=== PATIENT | female | born 1995 | race African-American/Black ===

== ENCOUNTER 2019-05-05 20:09 | Emergency (ER) | payer MEDICAID, OTHER ==
[2019-05-05] MEDS ORDERED: Acetaminophen 500 MG TAB ONE (20:49)
[2019-05-05 20:56] LABS: #Basophils 0.1 thou/uL (0.0-0.2); #Eosinphils 0.1 thou/uL (0.0-0.7); #Lymphocytes 2.2 thou/uL (1.20-3.40); #Monocytes 0.5 thou/uL (0.11-0.59); #Neutrophils 3.5 thou/uL (1.40-6.50); %Basophils 1.1 % (0.0-1.0); %Eosinophils 1.8 % (0.0-10.0); %Lymphocytes 34.3 % (21.0-51.0); %Monocytes 7.7 % (0.0-10.0); %Neutrophils 55.1 % (42.0-75.0); Hemoglobin 10.3 g/dL (12.0-16.0); Mean Corpuscular HGB CONC 33.2 g/dL (32.0-36.0); Mean Corpuscular Hemoglobin 29.3 pg (27.0-31.0); Mean Corpuscular Volume 88.2 fL (78.0-98.0); Mean Platelet Volume 7.4 fL (7.4-10.4); Platelet Count 246 thou/uL (130-400); RBC Distribution Width 12.7 % (11.5-14.5); Red Blood Cell (RBC) Count 3.51 mill/uL (4.20-5.40); White Blood Cell (WBC) Count 6.3 thou/uL (4.8-10.8)
[2019-05-05 20:57] LABS: Bilirubin Negative (Negative); Blood, Urine Negative (Negative); Clarity Clear (Clear); Glucose, Urine (Dipstick) Normal (Negative); Leukocyte Negative Leu/uL (Negative); Nitrite Negative (Negative); Protein, Urine (Dipstick) Negative (Neg-Trace); Urobilinogen Normal mg/dL (Less than 2)
[2019-05-05 21:21] LABS: ALT (SGPT) Less than 7 U/L (8-55); AST (SGOT) 13 U/L (5-34); Albumin 3.1 g/dL (3.5-5.0); Alkaline Phosphatase 59 U/L (40-110); Anion Gap 7 mmol/L (10-20); BUN (Urea Nitrogen) 5 mg/dL (7.0-18.7); Bilirubin, Total 0.2 mg/dL (0.2-1.2); Calc. Creatinine Clearance 0 mL/min (70-130); Carbon Dioxide 23 mmol/L (22-29); Chloride 107 mmol/L (98-107); Estimated GFR-MDRD Greater than 90; Globulin 2.8 g/dL (2.4-3.5); Glucose 69 mg/dL (70-105); Potassium 3.4 mmol/L (3.5-5.1); Protein, Total 5.9 g/dL (6.0-8.3); Sodium 134 mmol/L (136-145)
--- NOTE | 2019-05-05 23:04 | ULT ---
EXAM: US OB Multi Gestation PROVIDED CLINICAL HISTORY: Pain COMPARISON: None FINDINGS: Twin intrauterine gestations are documented, 18 weeks 5 days by ultrasound. heart rate of 150 b pm documented for twin A. heart rate of 160 bpm documented for twin B. A single placenta is demonstrated, posteriorly located and without evidence for previa or abruption. No intertwin membrane the gestations is evident. anatomic survey was not performed. Amniotic fluid appears qualitatively normal. Cervical length appears adequate. Estimated weight for twin B a i s 237 g. Estimated weight for twin B is 247 g. IMPRESSION: Twin live intrauterine gestations, 18 weeks 5 days by ultrasound. Sonographic findings are compatible with a monochorionic, monoamniotic gestation. Nonemergent OB consultation is recommended.
== END 2019-05-05 23:20 | disposition home or self-care (01) ==
LOC: ERS 20:09
DX: O99.89 Other specified diseases and conditions complicating pregnancy, childbirth and the puerperium (principal); R10.30 Lower abdominal pain, unspecified; R10.815 Periumbilic abdominal tenderness; Z3A.16 16 weeks gestation of pregnancy
CPT/HCPCS: 36415; 76810; 80053; 81003; 85025

== ENCOUNTER 2019-05-16 21:04 | Emergency (ER) | payer OTHER ==
[2019-05-16 22:13] LABS: #Basophils 0.1 thou/uL (0.0-0.2); #Eosinphils 0.1 thou/uL (0.0-0.7); #Lymphocytes 2.1 thou/uL (1.20-3.40); #Monocytes 0.5 thou/uL (0.11-0.59); #Neutrophils 5.6 thou/uL (1.40-6.50); %Eosinophils 0.8 % (0.0-10.0); %Lymphocytes 25.2 % (21.0-51.0); %Monocytes 5.8 % (0.0-10.0); %Neutrophils 67.2 % (42.0-75.0); Hemoglobin 9.9 g/dL (12.0-16.0); Mean Corpuscular HGB CONC 33.8 g/dL (32.0-36.0); Mean Corpuscular Hemoglobin 29.4 pg (27.0-31.0); Mean Platelet Volume 7.5 fL (7.4-10.4); Platelet Count 270 thou/uL (130-400); RBC Distribution Width 12.6 % (11.5-14.5); Red Blood Cell (RBC) Count 3.36 mill/uL (4.20-5.40); White Blood Cell (WBC) Count 8.4 thou/uL (4.8-10.8)
[2019-05-16 22:32] LABS: ALT (SGPT) Less than 7 U/L (8-55); AST (SGOT) 14 U/L (5-34); Albumin 3.3 g/dL (3.5-5.0); Alkaline Phosphatase 59 U/L (40-110); Anion Gap 12 mmol/L (10-20); BUN (Urea Nitrogen) 7 mg/dL (7.0-18.7); Bilirubin, Total 0.2 mg/dL (0.2-1.2); Calc. Creatinine Clearance 0 mL/min (70-130); Calcium 8.5 mg/dL (7.8-10.44); Carbon Dioxide 21 mmol/L (22-29); Chloride 104 mmol/L (98-107); Estimated GFR-MDRD Greater than 90; Globulin 2.7 g/dL (2.4-3.5); Glucose 119 mg/dL (70-105); Lipase 25 U/L (8-78); Sodium 134 mmol/L (136-145)
[2019-05-16 22:36] LABS: Potassium 2.9 mmol/L (3.5-5.1)
[2019-05-16 22:37] LABS: Bilirubin Negative (Negative); Blood, Urine Negative (Negative); Clarity Clear (Clear); Glucose, Urine (Dipstick) Normal (Negative); Leukocyte Negative Leu/uL (Negative); Mucous/LPF 1+ LPF (<2+); Nitrite Negative (Negative); Protein, Urine (Dipstick) 50 mg/dL (Neg-Trace); RBC/HPF None Seen HPF (0-3); Squamous Epithelial 0-3 HPF (0-3); WBC/HPF 0-3 HPF (0-3)
[2019-05-16 22:48] LABS: Bacteria/HPF Rare-Few HPF (None Seen)
[2019-05-16] MEDS ORDERED: Potassium Chloride 40 MEQ in Sodium Chloride 0.9% 250 ML 250 ML IVPB SCH (23:00)
[2019-05-16] MEDS ORDERED: Potassium Chloride 20 MEQ TAB ONE (23:23)
[2019-05-16] MEDS ORDERED: Ondansetron PF 4 MG/2 ML Vial ONE (23:23)
== END 2019-05-17 00:23 | disposition home or self-care (01) ==
LOC: ERS 21:04
DX: O99.282 Endocrine, nutritional and metabolic diseases complicating pregnancy, second trimester (principal); E86.0 Dehydration; E87.6 Hypokalemia; Z3A.20 20 weeks gestation of pregnancy
CPT/HCPCS: 36415; 80053; 81003; 81015; 83690; 85025; 93005; 96361; 96374; J2405; J3480; J7050

== ENCOUNTER 2019-09-04 05:38 | Inpatient (IN) | payer OTHER ==
[2019-09-04] MEDS ORDERED: Bicitra 30 ML UDCUP PO SCH (06:27)
[2019-09-04] MEDS ORDERED: Ondansetron PF 4 MG/2 ML Vial IVP PRN ×4 (06:27→11:58)
[2019-09-04] MEDS ORDERED: CEFAZOLIN 2 GM in Premix Bag 1 BAG IVPB SCH (06:27)
[2019-09-04] MEDS ORDERED: hydrALAZINE 20 MG/ML VIAL SLOW IVP PRN ×2 (06:27→10:33)
[2019-09-04] MEDS ORDERED: Promethazine HCl 25 MG/ML VIAL IM PRN ×4 (06:27→11:58)
[2019-09-04 06:39] VITALS: BMI 23.8
[2019-09-04 06:40] LABS: Hemoglobin 10.7 g/dL (12.0-16.0); Mean Corpuscular HGB CONC 32.2 g/dL (32.0-36.0); Mean Corpuscular Hemoglobin 27.8 pg (27.0-31.0); Mean Corpuscular Volume 86.4 fL (78.0-98.0); Mean Platelet Volume 9.5 fL (7.4-10.4); Platelet Count 215 thou/uL (130-400); RBC Distribution Width 17.3 % (11.5-14.5); Red Blood Cell (RBC) Count 3.85 mill/uL (4.20-5.40); White Blood Cell (WBC) Count 7.6 thou/uL (4.8-10.8)
[2019-09-04] MEDS ORDERED: MORPHINE 5 MG/10 ML PF VIAL ONE (06:46)
[2019-09-04] MEDS ORDERED: Oxytocin 10 UNITS/ML VIAL ONE ×2 (06:47→08:20)
[2019-09-04] MEDS ORDERED: Ondansetron PF 4 MG/2 ML Vial ONE (06:47)
[2019-09-04] MEDS ORDERED: EPHEDRINE 25 MG/5 ML SYRINGE ONE (06:49)
[2019-09-04] MEDS ORDERED: PHENYLEPHRINE-NS 100 MCG/ML 10 ML SYRINGE ONE (06:49)
[2019-09-04] MEDS ORDERED: Midazolam HCl 2 mg/2 ml Vial ONE (07:06)
[2019-09-04] MEDS ORDERED: Ketamine 50 MG/ML (10ML VIAL) ONE (07:06)
[2019-09-04] MEDS: Lactated Ringer's 1,000 ML IV SCH ×2 (07:15→12:00)
[2019-09-04 07:19] LABS: Syphilis Antibody Nonreactive (Nonreactive); Syphilis Antibody Index 0.02 S/CO (<1.00 Non-Reactive)
[2019-09-04 07:20] LABS: Hep B Surf Ag Non-Reactive S/CO (NonReactive)
[2019-09-04] MEDS ORDERED: Ketorolac Tromethamine 30 MG/ML VIAL IVP PRN ×2 (07:31)
[2019-09-04] MEDS ORDERED: Meperidine HCl/PF 25 MG/ML VIAL SLOW IVP PRN (07:31)
[2019-09-04] MEDS ORDERED: L&D-Morphine 4 MG/ML VIAL SLOW IVP PRN (07:31)
[2019-09-04] MEDS ORDERED: Promethazine HCl 25 MG SUPP PR PRN ×3 (07:31→11:58)
[2019-09-04] MEDS ORDERED: Naloxone HCl 0.4 mg/ml Vial IV PRN ×3 (07:31→11:58)
[2019-09-04] MEDS ORDERED: HYDROmorphone 2 MG/ML VIAL SLOW IVP PRN (07:31)
[2019-09-04] MEDS ORDERED: diphenhydrAMINE 50 MG/ML VIAL IVP PRN ×2 (07:31)
[2019-09-04] MEDS ORDERED: Ondansetron HCl/PF 4 MG/2 ML Vial IVP PRN (07:31)
[2019-09-04] MEDS ORDERED: Naloxone HCl 0.4 mg/ml Vial IVP PRN ×6 (07:31→11:58)
[2019-09-04] MEDS ORDERED: Communication Order-Pharmacy FS SCH ×4 (07:45→12:00)
[2019-09-04] MEDS ORDERED: Ketorolac Tromethamine 30 MG/ML VIAL IVP SCH (07:45)
--- NOTE | 2019-09-04 09:29 | OP ---
DATE OF PROCEDURE: 09/04/2019 PREOPERATIVE DIAGNOSES: 1. A 24-year-old, G3, P1-0-1-2, at 36 weeks. 2. Monochorionic diamniotic at 36 weeks. 3. Status post steroid benefit. 4. MFM recommendation for delivery between 36 and 37 weeks. POSTOPERATIVE DIAGNOSES: 1. A 24-year-old, G3, P1-0-1-2, at 36 weeks. 2. Monochorionic diamniotic at 36 weeks. 3. Status post steroid benefit. 4. MFM recommendation for delivery between 36 and 37 weeks. PROCEDURE PERFORMED: Repeat low-transverse section. [employer]: Feli Dang PA-C COMPLICATIONS: None. ANESTHESIA: Spinal per Dr. Moore. ESTIMATED BLOOD LOSS: Approximately 500 mL. QBL: Pending. OPERATIVE FINDINGS: 1. Low-transverse hysterotomy without extension. 2. Vigorous female infant delivered from vertex presentation. Apgars and weight pending at the time of dictation. 3. Female infant delivered from vertex presentation. Apgars and weight pending at the time of dictation. 4. Fundus firm after delivery of the placenta. 5. Normal-appearing uterus, tubes, and ovaries bilaterally. DESCRIPTION OF PROCEDURE: The patient was taken back to the OR with IV fluids running. When she was in the OR, spinal anesthesia was obtained and the patient was placed in dorsal supine position with a left lateral tilt. Ancef 2 g were administered through the IV. The patient had a Vázquez catheter placed using sterile technique. SCDs were placed to the lower extremities, and she was prepped and draped in normal fashion for section. The surgeons were gowned and gloved, and the anesthesia was tested and found to be adequate. A Pfannenstiel skin incision was made with a scalpel. A keloid reactive scar was excised from the center of the incision. The subcutaneous layer was dissected down with the scalpel until the fascia was reached. Once the fascia was reached, it was incised in the midline and extended superolaterally using curved Ornelas scissors. Marin clamps were then placed at the superior border of the fascia, which was sharply and bluntly dissected off the rectus abdominis muscles. This was repeated from the inferior edge of the fascia and dissection was carried down towards the level of the pubic symphysis. The rectus muscles were tented off the abdomen and entered with Metzenbaum scissors. The peritoneum was then bluntly entered and stretched laterally. An Mk O retractor was placed into the peritoneal cavity for retraction, visualization, and protection of the wound. Some filmy adhesions of the serosa over the anterior aspect of the uterus were taken down with Metzenbaum scissors. A bladder flap was created with Metzenbaum scissors and the bladder was dissected away from the planned hysterotomy site. A low-transverse hysterotomy was made with a scalpel. The uterus was bluntly entered and stretched using the Helm maneuver. Allis clamp was used to rupture the membranes of baby A with clear fluid noted. Baby A was then delivered from vertex presentation through the incision. The nose and mouth were suctioned. The cord was clamped and cut, and the was handed off to the Nursery Team. Next, the chorion of baby B was ruptured. Clear fluid was noted. Baby B was delivered vertex through the incision. The nose and mouth were suctioned and the baby was handed off to special care nurses in attendance. After both babies were delivered, the cord bloods of baby A and B were collected. The placenta was delivered. The uterus was exteriorized, massaged to firm, and cleared of clot and debris. The uterus was returned to the abdominal cavity. The hysterotomy was inspected and no extension was noted. The hysterotomy was closed with a running lock suture of Monocryl suture. A [id number] stitch was placed in each corner for additional hemostasis after the closure was completed. The hysterotomy and paracolic gutters were then copiously irrigated and suctioned dry. No areas of bleeding were noted. After the hysterotomy was closed and hemostasis was noted, the Mk O retractor was removed from the abdominal cavity. The rectus muscles and fascia were inspected and any small areas of bleeding were controlled with Bovie cauterization. The rectus fascia was closed with a continuous running suture from corner to corner using PDS suture. After the rectus muscles were closed, the subcutaneous layer was inspected and any small areas of bleeding were controlled with Bovie cauterization. The subcutaneous layer was irrigated and dried. It was reapproximated with a series of interrupted plain gut suture. The skin was closed with 4-0 Monocryl and dressed with Dermabond dressing. The patient tolerated the procedure well. There were no complications and the final count was correct. Job ID: [id number]
[2019-09-04] MEDS ORDERED: Meperidine HCl/PF 25 MG/ML VIAL ONE (10:06)
[2019-09-04] MEDS ORDERED: Bisacodyl 10 MG SUPP PR PRN (10:33)
[2019-09-04] MEDS ORDERED: Lanolin Ointment 7 GM TUBE TOP PRN (10:33)
[2019-09-04] MEDS ORDERED: diphenhydrAMINE 25 MG CAP PO PRN (10:33)
[2019-09-04] MEDS: Ketorolac Tromethamine 30 MG/ML VIAL IVP PRN ×2 (12:18→18:27)
[2019-09-04] MEDS: diphenhydrAMINE 50 MG/ML VIAL IVP PRN ×2 (12:19→18:27)
[2019-09-04] MEDS: Ibuprofen 800 MG TAB PO SCH ×2 (13:20→23:38)
[2019-09-04] MEDS: Ferrous Sulfate 325 MG TAB PO SCH (13:21)
[2019-09-04] MEDS ORDERED: HYDROcodone/Acetaminophen 5/325 mg Tablet PO PRN (19:45)
[2019-09-04] MEDS ORDERED: Zolpidem Tartrate 5 MG TAB PO PRN (19:45)
[2019-09-04] MEDS: Simethicone Chewable 80 MG TAB PO PRN (21:24)
[2019-09-04] MEDS: Docusate Calcium (SURFAK) 240 MG CAP PO SCH (21:24)
[2019-09-04] MEDS: HYDROcodone/Acetaminophen 5/325 mg Tablet PO PRN (21:28)
[2019-09-05] MEDS: Simethicone Chewable 80 MG TAB PO PRN ×2 (03:21→21:10)
[2019-09-05] MEDS: HYDROcodone/Acetaminophen 5/325 mg Tablet PO PRN (03:21)
[2019-09-05] MEDS: Ibuprofen 800 MG TAB PO SCH ×3 (05:01→21:09)
[2019-09-05 05:35] LABS: Hemoglobin 10.6 g/dL (12.0-16.0); Mean Corpuscular HGB CONC 31.5 g/dL (32.0-36.0); Mean Corpuscular Hemoglobin 27.5 pg (27.0-31.0); Mean Corpuscular Volume 87.3 fL (78.0-98.0); Mean Platelet Volume 9.8 fL (7.4-10.4); Platelet Count 202 thou/uL (130-400); RBC Distribution Width 16.9 % (11.5-14.5); Red Blood Cell (RBC) Count 3.84 mill/uL (4.20-5.40); White Blood Cell (WBC) Count 12.1 thou/uL (4.8-10.8)
[2019-09-05] MEDS: Ferrous Sulfate 325 MG TAB PO SCH ×2 (06:59→13:38)
[2019-09-05] MEDS: Prenatal Vitamin 1 TAB PO SCH (08:42)
[2019-09-05] MEDS: Docusate Calcium (SURFAK) 240 MG CAP PO SCH ×2 (08:42→21:09)
[2019-09-05] MEDS ORDERED: Adacel (T-DAP) 0.5 ML SYRINGE IM ONE (09:00)
--- NOTE | 2019-09-05 09:11 | PDOC.PP ---
Post Progress Note Post Day #: 1 Subjective: Patient is doing well. She can feel the gas moving around her stomach. PO intake tolerated: yes Flatus: no Ambulation: yes Vital Signs (12 hours) Temp Pulse Resp BP Pulse Ox 09/05/19 07:17 98.6 F 68 16 138/89 100 09/05/19 03:20 98.2 F 65 16 108/58 L 09/04/19 23:00 98.1 F 61 16 119/68 Weight Weight 139 lb - Physical Examination General: NAD Respiratory: non-labored breathing Abdominal: + bowel sounds (hypoactive. Bowel sounds in LUQ only.), appropriately TTP Fundus firm & at: umb -2 Extremities: negative homans (B) Skin: CS incision dry & intact Neurological: no gross focal deficits Psychiatric: A&Ox3, normal affect Result Diagrams: 09/05/19 05:08 Additional Labs: Post Labs Blood Type O POSITIVE 09/04/19 07:02 Hep Bs Antigen Non-Reactive S/CO (NonReactive) 09/04/19 06:30 (1) delivery delivered Code(s): O82 - ENCOUNTER FOR DELIVERY WITHOUT INDICATION Status: Acute (2) Twin gestation in third trimester Code(s): O30.003 - TWIN PREG, UNSP NUM PLCNTA & AMNIO SACS, THIRD TRIMESTER Status: Acute - Assessment/Plan A: PO day 1 s/p RCS fro twin gestation. Hypoactive bowel sounds P: Walking in [place] three times today. RN to listen to bowel sounds this afternoon, pt has not had flatus Evaluated for DC home Sun. or Sunday.
[2019-09-06] MEDS: HYDROcodone/Acetaminophen 5/325 mg Tablet PO PRN (03:40)
[2019-09-06] MEDS: Simethicone Chewable 80 MG TAB PO PRN (03:42)
[2019-09-06] MEDS: Ibuprofen 800 MG TAB PO SCH ×3 (05:31→21:15)
--- NOTE | 2019-09-06 05:46 | PDOC.PP ---
Post Progress Note Post Day #: 2 Subjective: Doing well. PO intake tolerated: yes Flatus: yes Ambulation: yes Vital Signs (12 hours) Temp Pulse Resp BP Pulse Ox 09/06/19 01:56 98.9 F 76 14 124/72 99 09/05/19 21:01 98.7 F 68 14 125/62 99 Weight Weight 139 lb - Physical Examination General: NAD Cardiovascular: no m/r/g Respiratory: clear to auscultation bilaterally Abdominal: + bowel sounds, lochia, no distention, appropriately TTP Extremities: negative homans (B) Skin: CS incision dry & intact (Dermabond) Neurological: no gross focal deficits Psychiatric: A&Ox3, normal affect Result Diagrams: 09/05/19 05:08 Additional Labs: Post Labs Blood Type O POSITIVE 09/04/19 07:02 Hep Bs Antigen Non-Reactive S/CO (NonReactive) 09/04/19 06:30 (1) delivery delivered Code(s): O82 - ENCOUNTER FOR DELIVERY WITHOUT INDICATION Status: Acute (2) Twin gestation in third trimester Code(s): O30.003 - TWIN PREG, UNSP NUM PLCNTA & AMNIO SACS, THIRD TRIMESTER Status: Acute - Assessment/Plan POD 2 from twins and has twins at home 15 mos old. Doing well, asked to go home but babies still pending bili tests...likely home tomorrow.
[2019-09-06] MEDS: Ferrous Sulfate 325 MG TAB PO SCH ×2 (07:43→13:28)
[2019-09-06] MEDS: Docusate Calcium (SURFAK) 240 MG CAP PO SCH ×2 (08:04→21:15)
[2019-09-06] MEDS: Prenatal Vitamin 1 TAB PO SCH (08:04)
[2019-09-06 20:18] VITALS: TEMP 98.7
--- NOTE | 2019-09-07 06:16 | PDOC.PP ---
Post Progress Note Post Day #: POD3 Subjective: Resting comfortably. Tolerating diet. PO intake tolerated: yes Flatus: yes Ambulation: yes Vital Signs (12 hours) Temp Pulse Resp BP Pulse Ox 09/06/19 20:00 98.7 F 82 20 125/61 96 Weight Weight 63.049 kg - Physical Examination General: NAD Respiratory: non-labored breathing Abdominal: no distention Skin: CS incision dry & intact Neurological: no gross focal deficits Result Diagrams: 09/05/19 05:08 Additional Labs: Post Labs Blood Type O POSITIVE 09/04/19 07:02 Hep Bs Antigen Non-Reactive S/CO (NonReactive) 09/04/19 06:30 - Assessment/Plan Doing well. DC home. Precautions. RTC [address] Olsen.
[2019-09-07] MEDS: Ibuprofen 800 MG TAB PO SCH ×2 (06:34→08:33)
[2019-09-07] MEDS: Ferrous Sulfate 325 MG TAB PO SCH (07:30)
[2019-09-07 07:52] VITALS: BP 123/75
[2019-09-07] MEDS: Prenatal Vitamin 1 TAB PO SCH (08:31)
[2019-09-07] MEDS: Docusate Calcium (SURFAK) 240 MG CAP PO SCH (08:31)
== END 2019-09-07 12:50 | disposition home or self-care (01) | DRG 788 ==
LOC: L&D 05:38 → 3SW 11:06
PROVIDERS: ADMIT Obstetrics & Gynecology; ATTEND Obstetrics & Gynecology
PROC: 10D00Z1 Extraction of Products of Conception, Low, Open Approach (ICD-10-PCS; principal; 2019-09-04)
DX: O30.033 Twin pregnancy, monochorionic/diamniotic, third trimester (principal); O34.211 Maternal care for low transverse scar from previous cesarean delivery; Z37.2 Twins, both liveborn; Z3A.36 36 weeks gestation of pregnancy
CPT/HCPCS: 36415; 51702; 85027; 86780; 86850; 86900; 86901; 87340; 88307; J0690; J1200; J1885; J2175; J2250; J2274; J2405; J2590

== ENCOUNTER 2020-08-25 11:01 | Emergency (ER) | payer OTHER ==
[2020-08-25] MEDS ORDERED: Ondansetron ODT 4 MG TAB ONE (11:48)
[2020-08-25 12:14] LABS: Bilirubin Negative (Negative); Blood, Urine Negative (Negative); Clarity Clear (Clear); Glucose, Urine (Dipstick) Normal (Negative); Ketone, Urine Negative (Negative); Leukocyte Negative Leu/uL (Negative); Nitrite Negative (Negative); Protein, Urine (Dipstick) Negative (Neg-Trace); Specific Gravity, Urine 1.024 (1.002-1.036); Urobilinogen Normal mg/dL (Less than 2); pH, Urine 5.5 (5.0-9.0)
[2020-08-25 12:15] LABS: Pregnancy Test - Urine (BHCG) Negative (Negative); Pregu Control Background? CLEAR/WHITE (CLR/WHITE); Pregu Control Bar Appear? YES (CONTROL BAR); Specific Gravity 1.024 (1.002-1.036)
== END 2020-08-25 14:49 | disposition home or self-care (01) ==
LOC: ERS 11:01
DX: R11.2 Nausea with vomiting, unspecified (principal); R05 Cough; F17.210 Nicotine dependence, cigarettes, uncomplicated
CPT/HCPCS: 81003; 81025; 99284; Q0162

== ENCOUNTER 2020-11-01 17:33 | Emergency (ER) | payer OTHER ==
[2020-11-01 19:55] LABS: Bilirubin Negative (Negative); Blood, Urine Small (Negative); Glucose, Urine (Dipstick) Negative (Negative); Ketone, Urine Negative (Negative); Leukocyte Moderate (Negative); Nitrite Negative (Negative); Protein, Urine (Dipstick) > or equal to 300 mg/dL (Neg-Trace)
[2020-11-01 19:56] LABS: Clarity Hazy (Clear); pH, Urine Greater/Equal 9.0 (5.0-9.0)
[2020-11-01 20:00] LABS: Other Microscopic Description Less than 2 mL rec'd
[2020-11-01 20:06] LABS: Bacteria/HPF 3+ HPF (None Seen)
== END 2020-11-01 19:40 | disposition left against medical advice (07) ==
LOC: ERS 17:33
DX: R33.9 Retention of urine, unspecified (principal); F17.210 Nicotine dependence, cigarettes, uncomplicated
CPT/HCPCS: 81003; 81015; 99283

== ENCOUNTER 2021-10-09 10:05 | Emergency (ER) | payer OTHER ==
[2021-10-09] MEDS ORDERED: Ondansetron PF 4 MG/2 ML Vial ONE (10:44)
[2021-10-09 10:49] LABS: Bacteria/HPF None Seen HPF (None Seen); Bilirubin Negative (Negative); Blood, Urine Negative (Negative); Clarity Clear (Clear); Glucose, Urine (Dipstick) Normal (Negative); Ketone, Urine Negative (Negative); Leukocyte 25 Leu/uL (Negative); Nitrite Negative (Negative); Protein, Urine (Dipstick) 30 mg/dL (Neg-Trace); RBC/HPF 0-3 HPF (0-3); Specific Gravity, Urine 1.028 (1.002-1.036); WBC/HPF 0-3 HPF (0-3); pH, Urine 6.5 (5.0-9.0)
[2021-10-09 10:52] LABS: #Basophils 0.1 thou/uL (0.0-0.2); #Eosinphils 0.1 thou/uL (0.0-0.7); #Lymphocytes 2.1 thou/uL (1.20-3.40); #Monocytes 0.4 thou/uL (0.11-0.59); #Neutrophils 3.7 thou/uL (1.40-6.50); %Basophils 0.9 % (0.0-1.0); %Eosinophils 0.9 % (0.0-10.0); %Lymphocytes 33.7 % (21.0-51.0); %Monocytes 5.7 % (0.0-10.0); %Neutrophils 58.9 % (42.0-75.0); Hemoglobin 10.9 g/dL (12.0-16.0); Mean Corpuscular HGB CONC 32.2 g/dL (32.0-36.0); Mean Corpuscular Hemoglobin 25.3 pg (27.0-31.0); Mean Corpuscular Volume 78.7 fL (78.0-98.0); Mean Platelet Volume 7.1 fL (7.4-10.4); Platelet Count 403 thou/uL (130-400); Red Blood Cell (RBC) Count 4.31 mill/uL (4.20-5.40); White Blood Cell (WBC) Count 6.2 thou/uL (4.8-10.8)
[2021-10-09 11:10] LABS: ALT (SGPT) 8 U/L (8-55); AST (SGOT) 17 U/L (5-34); Albumin 3.8 g/dL (3.5-5.0); Alkaline Phosphatase 45 U/L (40-110); Anion Gap 14 mmol/L (10-20); BUN (Urea Nitrogen) 5 mg/dL (7.0-18.7); Bilirubin, Total 0.3 mg/dL (0.2-1.2); Calc. Creatinine Clearance 0 mL/min (70-130); Calcium 9.2 mg/dL (7.8-10.44); Carbon Dioxide 20 mmol/L (22-29); Chloride 106 mmol/L (98-107); Glucose 122 mg/dL (70-105); Potassium 3.5 mmol/L (3.5-5.1); Protein, Total 6.8 g/dL (6.0-8.3); Sodium 136 mmol/L (136-145)
== END 2021-10-09 13:30 | disposition home or self-care (01) ==
LOC: ERS 10:05
DX: N39.0 Urinary tract infection, site not specified (principal); R11.2 Nausea with vomiting, unspecified; Z86.718 Personal history of other venous thrombosis and embolism
CPT/HCPCS: 76815; 80053; 81003; 81015; 84702; 85025; 96374; J2405

== ENCOUNTER 2021-11-10 11:26 | Emergency (ER) | payer OTHER ==
[2021-11-10 12:31] LABS: #Lymphocytes 0.4 thou/uL (1.20-3.40); #Monocytes 0.4 thou/uL (0.11-0.59); #Neutrophils 4.4 thou/uL (1.40-6.50); %Basophils 0.6 % (0.0-1.0); %Eosinophils 0.5 % (0.0-10.0); %Lymphocytes 8.1 % (21.0-51.0); %Monocytes 7.1 % (0.0-10.0); %Neutrophils 83.7 % (42.0-75.0); Hemoglobin 9.9 g/dL (12.0-16.0); Mean Corpuscular HGB CONC 31.4 g/dL (32.0-36.0); Mean Corpuscular Hemoglobin 25.9 pg (27.0-31.0); Mean Corpuscular Volume 82.6 fL (78.0-98.0); Mean Platelet Volume 8.5 fL (7.4-10.4); Platelet Count 233 thou/uL (130-400); RBC Distribution Width 16.3 % (11.5-14.5); White Blood Cell (WBC) Count 5.3 thou/uL (4.8-10.8)
[2021-11-10 12:51] LABS: ALT (SGPT) Less than 7 U/L (8-55); AST (SGOT) 15 U/L (5-34); Albumin 3.9 g/dL (3.5-5.0); Alkaline Phosphatase 46 U/L (40-110); Anion Gap 14 mmol/L (10-20); BUN (Urea Nitrogen) 4 mg/dL (7.0-18.7); Bilirubin, Total Less than 0.2 mg/dL (0.2-1.2); Calc. Creatinine Clearance 0 mL/min (70-130); Calcium 9.5 mg/dL (7.8-10.44); Carbon Dioxide 21 mmol/L (22-29); Chloride 103 mmol/L (98-107); Estimated GFR 126; Globulin 3.1 g/dL (2.4-3.5); Glucose 76 mg/dL (70-105); Lipase 14 U/L (8-78); Potassium 3.2 mmol/L (3.5-5.1); Sodium 135 mmol/L (136-145)
== END 2021-11-10 14:55 | disposition home or self-care (01) ==
LOC: ERS 11:26
DX: O99.282 Endocrine, nutritional and metabolic diseases complicating pregnancy, second trimester (principal); E86.0 Dehydration; Z3A.15 15 weeks gestation of pregnancy
CPT/HCPCS: 36415; 80053; 83690; 84484; 84702; 85025; 93005; 96360

== ENCOUNTER 2022-09-19 01:35 | Emergency (ER) | payer OTHER ==
[2022-09-19 16:37] LABS: Chlamydia by PCR, Vaginal Swab Not Detected (NotDetected); GC by PCR, Vaginal Swab Not Detected (NotDetected)
== END 2022-09-19 03:55 | disposition home or self-care (01) ==
LOC: ERS 01:35
DX: I82.812 Embolism and thrombosis of superficial veins of left lower extremity (principal); K08.89 Other specified disorders of teeth and supporting structures; R07.89 Other chest pain
CPT/HCPCS: 71045; 87480; 87491; 87510; 87591; 87660; 93005

== ENCOUNTER 2023-09-12 18:08 | Emergency (ER) | payer OTHER | END 2023-09-12 22:52 | disposition home or self-care (01) | LOC: ERS 18:08 | DX: O21.9 Vomiting of pregnancy, unspecified (principal); O99.331 Smoking (tobacco) complicating pregnancy, first trimester; F17.210 Nicotine dependence, cigarettes, uncomplicated; O99.891 Other specified diseases and conditions complicating pregnancy; R10.9 Unspecified abdominal pain; Z3A.13 13 weeks gestation of pregnancy | CPT/HCPCS: 36415; 76815; 80053; 81001; 83690; 84702; 85025 ==

== ENCOUNTER 2023-10-08 22:34 | Emergency (ER) | payer OTHER ==
[2023-10-09 00:01] LABS: #Basophils 0.06 10x3/uL (0.0-0.2); %Basophils 0.8 % (0.0-1.0); %Eosinophils 1.3 % (0.0-10.0); %Lymphocytes 31.7 % (21.0-51.0); %Monocytes 6.2 % (0.0-10.0); %Neutrophils 59.6 % (42.0-75.0); Hematocrit 36.5 % (36.0-47.0); Hemoglobin 11.6 g/dL (12.0-16.0); Mean Corpuscular HGB CONC 31.8 g/dL (32.0-36.0); Mean Corpuscular Hemoglobin 26.1 pg (27.0-31.0); Mean Corpuscular Volume 82.2 fL (78.0-98.0); Mean Platelet Volume 9.9 fL (7.4-10.4); Platelet Count 343 10x3/uL (130-400); RBC Distribution Width 17.5 % (11.5-14.5); Red Blood Cell (RBC) Count 4.44 mill/uL (4.20-5.40)
[2023-10-09 00:04] LABS: Bacteria/HPF None Seen HPF (None Seen); Bilirubin Negative (Negative); Blood, Urine Negative (Negative); CAUTI Indications for Culture Acute Hematuria; Clarity Clear (Clear); Glucose, Urine (Dipstick) Normal (Negative); Ketone, Urine Negative (Negative); Leukocyte Negative Leu/uL (Negative); Nitrite Negative (Negative); Protein, Urine (Dipstick) Negative (Neg-Trace); RBC/HPF 0-3 HPF (0-3); Specific Gravity, Urine 1.013 (1.002-1.036); Urobilinogen Normal mg/dL (Less than 2); WBC/HPF 0-3 HPF (0-3)
[2023-10-09 00:18] LABS: ALT (SGPT) Less than 5 U/L (8-55); AST (SGOT) 15 U/L (5-34); Albumin 3.2 g/dL (3.5-5.0); Alkaline Phosphatase 41 U/L (40-110); Anion Gap 13 mmol/L (10-20); BUN (Urea Nitrogen) 10 mg/dL (7.0-18.7); Bilirubin, Total 0.1 mg/dL (0.2-1.2); Calc. Creatinine Clearance 0 mL/min (70-130); Calcium 10.2 mg/dL (7.8-10.44); Carbon Dioxide 20 mmol/L (22-29); Chloride 107 mmol/L (98-107); Estimated GFR 125; Globulin 3.4 g/dL (2.4-3.5); Glucose 68 mg/dL (70-105); Lipase 25 U/L (8-78); Potassium 3.7 mmol/L (3.5-5.1); Protein, Total 6.6 g/dL (6.0-8.3); Sodium 136 mmol/L (136-145)
[2023-10-09 00:41] LABS: Urine Culture Reflex No No
== END 2023-10-09 03:30 | disposition home or self-care (01) ==
LOC: ERS 22:34
DX: O99.891 Other specified diseases and conditions complicating pregnancy (principal); R10.31 Right lower quadrant pain; O99.332 Smoking (tobacco) complicating pregnancy, second trimester; F17.210 Nicotine dependence, cigarettes, uncomplicated; O9A.112 Malignant neoplasm complicating pregnancy, second trimester; D24.2 Benign neoplasm of left breast; Z3A.16 16 weeks gestation of pregnancy; Z55.6 Problems related to health literacy; Z86.718 Personal history of other venous thrombosis and embolism
CPT/HCPCS: 36415; 76705; 76815; 80053; 81001; 83690; 85025

== ENCOUNTER 2025-02-09 09:39 | Emergency (ER) | payer OTHER ==
[2025-02-09 11:16] LABS: Bacteria/HPF None Seen HPF (None Seen); CAUTI Indications for Culture Acute Hematuria; Glucose, Urine (Dipstick) Normal (Negative); Leukocyte Negative Leu/uL (Negative); Protein, Urine (Dipstick) 20 mg/dL (Neg-Trace); RBC/HPF 0-3 HPF (0-3); Specific Gravity, Urine 1.032 (1.002-1.036); WBC/HPF 0-3 HPF (0-3)
[2025-02-09 11:17] LABS: Pregnancy Test - Urine (BHCG) Negative (Negative); Pregu Control Background? CLEAR/WHITE (CLR/WHITE); Pregu Control Bar Appear? YES (CONTROL BAR); Urine Culture Reflex No No
[2025-02-09 11:47] LABS: #Basophils 0.08 10x3/uL (0.0-0.2); #Eosinophils 0.09 10x3/uL (0.0-0.7); #Monocytes 0.27 10x3/uL (0.11-0.59); #Neutrophils 3.62 10x3/uL (1.40-6.50); %Basophils 1.3 % (0.0-1.0); %Eosinophils 1.4 % (0.0-10.0); %Lymphocytes 35.3 % (21.0-51.0); %Monocytes 4.3 % (0.0-10.0); %Neutrophils 57.5 % (42.0-75.0); Hematocrit 46.5 % (36.0-47.0); Hemoglobin 15.4 g/dL (12.0-16.0); Mean Corpuscular Hemoglobin 30.3 pg (27.0-31.0); Mean Corpuscular Volume 91.5 fL (78.0-98.0); Platelet Count 273 10x3/uL (130-400); Red Blood Cell (RBC) Count 5.08 mill/uL (4.20-5.40); White Blood Cell (WBC) Count 6.29 10x3/uL (4.8-10.8)
[2025-02-09 13:37] LABS: ALT (SGPT) 11 U/L (Less than 34); AST (SGOT) 30 U/L (11-34); Albumin 4.1 g/dL (3.1-4.5); Alkaline Phosphatase 52 U/L (40-110); Anion Gap 14 mmol/L (10-20); BUN (Urea Nitrogen) 7 mg/dL (7.0-18.7); Bilirubin, Total 0.5 mg/dL (0.3-1.2); Calc. Creatinine Clearance 0 mL/min (70-130); Calcium 9.1 mg/dL (7.8-10.44); Carbon Dioxide 19 mmol/L (22-29); Chloride 110 mmol/L (98-107); Globulin 3.1 g/dL (2.4-3.5); Glucose 83 mg/dL (70-105); Lipase 27 U/L (8-78); Potassium 4.4 mmol/L (3.5-5.1); Sodium 139 mmol/L (136-145)
[2025-02-09 19:21] LABS: Chlamydia by PCR, Vaginal Swab Not Detected (NotDetected); GC by PCR, Vaginal Swab Not Detected (NotDetected)
== END 2025-02-09 15:22 | disposition home or self-care (01) ==
LOC: ERS 09:39
DX: N76.0 Acute vaginitis (principal); B96.89 Other specified bacterial agents as the cause of diseases classified elsewhere; F17.210 Nicotine dependence, cigarettes, uncomplicated
CPT/HCPCS: 71046; 76856; 80053; 81001; 81025; 83690; 85025; 87480; 87491; 87510; 87591; 87660